=== PATIENT | female | born 1965 | race African-American/Black ===

== ENCOUNTER 2017-06-27 02:01 | Emergency (ER) | payer SELFPAY ==
[~2017-06-27] VITALS: Ht 165.1 cm; Wt 52.0 kg
[~2017-06-27 02:01] MED LIST: ADALAT CC30 MG OR; CLONIDINE0.1 MG PO; CLONIDINE0.2 MG OR; FIORICET PO; LORTAB 5 OR; LOSARTAN POT50 MG PO; NORVASC10 M1 PO; PERCOCET 5/325M1 TAB OR; PROCARDIA XL30 MG PO; PROMETHAZINE25 MG OR; ULTRAM50 MG OR
[2017-06-27 03:03] LABS: HEMOGLOBIN 15.3 g/dl (12.0-16.0); IMMATURE GRANULOCYTES 0.2 % (0.0-1.0); MEAN CELL VOLUME 85.2 fL CALC (80.0-100.0); MEAN CORPUSCULAR HGB 28.3 pG CALC (26.0-32.0); MEAN CORPUSCULAR HGB CONC 33.3 g/L CALC (32.0-36.0); RED BLOOD COUNT 5.4 mill/uL (4.20-5.60); RED CELL DISTRI WIDTH 13.7 % (11.5-15.5)
[2017-06-27 03:08] LABS: COCAINE NEGATIVE (NEGATIVE); TETRAHYDROCANNABIONOL NEGATIVE (NEGATIVE)
[2017-06-27 03:09] LABS: BARBITURATES NEGATIVE (NEGATIVE); METHADONE NEGATIVE (NEGATIVE); OXCYCODONE NEGATIVE (NEGATIVE); TRICYLIC ANTIDEPRESSANTS NEGATIVE (NEGATIVE)
[2017-06-27 03:13] LABS: ALBUMIN 4.8 g/dL (3.2-5.0); ALKALINE PHOSPHATASE 85 u/l (38-126); ANION GAP 20 (6-22 (CALC)); BILIRUBIN, TOTAL 0.4 mg/dL (0.0-1.4); BUN 14 mg/dL (7-17); BUN/CREATININE RATIO 19 (12-20 (CALC)); CALCIUM 10.2 mg/dL (8.4-10.2); CARBON DIOXIDE 23 mmol/l (22-30); CHLORIDE 105 mmol/l (95-108); CREATININE 0.8 mg/dL (0.5-1.0); ETHYL ALCOHOL 80 mg/dl (0-30); GFR > 60 ML/MIN (>=60 (CALC)); GFR FOR AFR.AMER. > 60 ML/MIN (>=60 (CALC)); GLUCOSE 131 mg/dL (65-105); POTASSIUM 3.8 mmol/l (3.5-5.1); SGOT/AST 27 u/l (14-36); SGPT/ALT 32 u/l (9-52); SODIUM 145 mmol/l (137-146); TOTAL PROTEIN 7.9 g/dL (6.3-8.2)
[2017-06-27 05:55] VITALS: BP 147/77
[2017-06-27] MEDS ORDERED: PERCOCET 5/325M1 TAB PO (05:56)
[2017-06-27] MEDS ORDERED: HYDROCHLOROT25 MG PO (05:56)
[2017-06-27] MEDS ORDERED: GENTAMICIN0.3 % OD (06:06)
== END 2017-06-27 06:20 | disposition home or self-care (01) | DRG 605 ==
LOC: ED 02:01
PROVIDERS: Emergency Medicine
PROC: 2W3KX1Z Immobilization of Left Finger using Splint (ICD-10-PCS; principal; 2017-06-27)
DX: S00.83XA Contusion of other part of head, initial encounter (principal); I10 Essential (primary) hypertension; M25.542 Pain in joints of left hand; H11.31 Conjunctival hemorrhage, right eye; M25.442 Effusion, left hand; Y04.0XXA Assault by unarmed brawl or fight, initial encounter; Y92.039 Unspecified place in apartment as the place of occurrence of the external cause; Z72.89 Other problems related to lifestyle

== ENCOUNTER 2018-03-04 16:55 | Observation (INO) | payer OTHER ==
[~2018-03-04] VITALS: Ht 162.6 cm; Wt 57.6 kg
[~2018-03-04 16:55] MED LIST changes: +GENTAMICIN0.3 % OD; +HYDROCHLOROT25 MG PO; +PERCOCET 5/325M1 TAB PO
[2018-03-04 17:25] LABS: HEMATOCRIT 44.4 % (37.0-47.0); HEMOGLOBIN 14.5 g/dl (12.0-16.0); IMMATURE GRANULOCYTES 0.3 % (0.0-1.0); MEAN CELL VOLUME 86.4 fL CALC (80.0-100.0); MEAN CORPUSCULAR HGB 28.2 pG CALC (26.0-32.0); MEAN CORPUSCULAR HGB CONC 32.7 g/L CALC (32.0-36.0); NEUT# 4.19 thou/uL (2.00-7.15); RED BLOOD COUNT 5.14 mill/uL (4.20-5.60); RED CELL DISTRI WIDTH 14.2 % (11.5-15.5)
[2018-03-04 17:49] LABS: ALBUMIN 4.6 g/dL (3.2-5.0); ALKALINE PHOSPHATASE 91 u/l (38-126); ANION GAP 13 (6-22 (CALC)); BILIRUBIN, TOTAL 0.4 mg/dL (0.0-1.4); BUN 16 mg/dL (7-17); BUN/CREATININE RATIO 26 (12-20 (CALC)); CARBON DIOXIDE 27 mmol/l (22-30); CHLORIDE 106 mmol/l (95-108); CREATININE 0.6 mg/dL (0.5-1.0); GFR > 60 ML/MIN (>=60 (CALC)); GFR FOR AFR.AMER. > 60 ML/MIN (>=60 (CALC)); POTASSIUM 3.9 mmol/l (3.5-5.1); SGOT/AST 24 u/l (14-36); SGPT/ALT 28 u/l (9-52); SODIUM 142 mmol/l (137-146); TOTAL PROTEIN 8.3 g/dL (6.3-8.2)
[2018-03-04 18:45] LABS: URINE BILIRUBIN - DIPSTICK NEGATIVE (NEGATIVE); URINE BLOOD DIPSTICK SMALL (NEGATIVE); URINE CLARITY CLEAR; URINE COLOR YELLOW; URINE GLUCOSE - DIPSTICK NEGATIVE (NEGATIVE); URINE KETONE NEGATIVE (NEGATIVE); URINE LEUK ESTERASE SMALL (NEGATIVE); URINE NITRITE - DIPSTICK NEGATIVE (Negative); URINE PH 6.5 (4.5-8.0); URINE PROTEIN - DIPSTICK TRACE mg/dL (NEG-TRACE); URINE UROBILINOGEN - DIPSTICK 0.2 E.U./dL (0.2)
[2018-03-04 18:54] LABS: URINE SQUAMOUS EPITHELIAL CELL FEW EPI/hpf (0-FEW)
[2018-03-04 19:15] VITALS: BP 150/81
[2018-03-04 20:58] VITALS: BP 157/81
[2018-03-04 23:43] VITALS: BP 138/73
[2018-03-05] VITALS (10 sets, daily range): BP systolic 121–207; BP diastolic 74–94
[2018-03-05 06:15] LABS: CHOLESTEROL HDL RATIO 4.2 (<4.4 (CALC))
[2018-03-06] VITALS (7 sets, daily range): BP systolic 131–188; BP diastolic 80–106
[2018-03-06 06:21] LABS: ANION GAP 10 (6-22 (CALC)); BUN 11 mg/dL (7-17); BUN/CREATININE RATIO 19 (12-20 (CALC)); CARBON DIOXIDE 28 mmol/l (22-30); CHLORIDE 106 mmol/l (95-108); CREATININE 0.6 mg/dL (0.5-1.0); GFR > 60 ML/MIN (>=60 (CALC)); GFR FOR AFR.AMER. > 60 ML/MIN (>=60 (CALC)); POTASSIUM 3.7 mmol/l (3.5-5.1); SODIUM 141 mmol/l (137-146)
[2018-03-07 00:35] VITALS: BP 145/78
[2018-03-07 04:33] VITALS: BP 142/85
[2018-03-07] MEDS ORDERED: catapres PO (08:23)
[2018-03-07] MEDS ORDERED: LISINOPRIL20 M1 PO (08:23)
[2018-03-07] MEDS ORDERED: CARDIZEM CD120 M1 PO (08:23)
[2018-03-07 08:28] VITALS: BP 191/93
[2018-03-07 09:42] VITALS: BP 160/89
[2018-03-07 12:35] VITALS: BP 127/79
== END 2018-03-07 14:20 | disposition home or self-care (01) ==
LOC: ED 16:55 → ED-I 18:04 → ED 18:27 → MS2 18:28
PROVIDERS: Emergency Medicine; Nurse Practitioner Family; ADMIT Internal Medicine; ATTEND Internal Medicine
DX: I16.0 Hypertensive urgency (principal); I10 Essential (primary) hypertension; F17.210 Nicotine dependence, cigarettes, uncomplicated; Z23 Encounter for immunization; Z91.14 Patient's other noncompliance with medication regimen; R07.2 Precordial pain
CPT/HCPCS: G0378

== ENCOUNTER 2023-03-24 19:27 | Inpatient (IN) | payer OTHER ==
[2023-03-24] VITALS (40 sets, daily range): BP systolic 87–238; BP diastolic 63–153
[~2023-03-24] VITALS: Ht 162.6 cm; Wt 48.0 kg
[~2023-03-24 19:27] MED LIST changes: +CARDIZEM CD120 M1 PO; +LISINOPRIL20 M1 PO; +catapres PO
[2023-03-24] MEDS ORDERED: AMLODIPINE BESYL5 MG PO (19:51)
[2023-03-24] MEDS ORDERED: HYDROCHLOROT12.5 M1 PO (19:51)
[2023-03-24] MEDS ORDERED: COZAAR50 MG PO (19:52)
[2023-03-24 20:06] LABS: BASO% 0.4 % (0-3); EOS% 1.4 % (0-8); HEMATOCRIT 47.1 % (37.0-47.0); HEMOGLOBIN 15.1 g/dl (12.0-16.0); IMMATURE GRANULOCYTES 0.2 % (0.0-5.0); LYMPH% 53.4 % (15-41); MEAN CELL VOLUME 83.7 fL CALC (80.0-100.0); MEAN CORPUSCULAR HGB 26.8 pG CALC (26.0-32.0); MEAN CORPUSCULAR HGB CONC 32.1 g/dL CAL (32.0-36.0); MONO% 5.4 % (2-13); NEUT# 5.05 thou/uL (2.00-7.15); NEUT% 39.2 % (42-76); RED BLOOD COUNT 5.63 mill/uL (4.20-5.60); RED CELL DISTRI WIDTH 13.7 % (11.5-15.5)
[2023-03-24 20:16] LABS: ALBUMIN 4.6 g/dL (3.2-5.0); ALKALINE PHOSPHATASE 91 u/l (38-126); ANION GAP 14 (6-22 (CALC)); BILIRUBIN, TOTAL 0.3 mg/dL (0.02-1.3); BUN 18 mg/dL (7-17); BUN/CREATININE RATIO 22 (12-20 (CALC)); CARBON DIOXIDE 29 mmol/l (22-30); CHLORIDE 100 mmol/l (95-108); CREATININE 0.8 mg/dL (0.5-1.0); GFR FOR AFR.AMER. > 60 ML/MIN (>=60 (CALC)); GFR OTHER RACES > 60 ML/MIN (>=60 (CALC)); POTASSIUM 3.6 mmol/l (3.5-5.1); SGOT/AST 31 u/l (14-36); SODIUM 139 mmol/l (137-146)
[2023-03-24 20:19] LABS: PROTHROMBIN TIME 9.8 SECONDS (9.0-12.5)
[2023-03-24 20:58] LABS: URINE BILIRUBIN - DIPSTICK NEGATIVE (NEGATIVE); URINE COLOR YELLOW; URINE GLUCOSE - DIPSTICK NEGATIVE (NEGATIVE); URINE KETONE Negative (NEGATIVE); URINE NITRITE - DIPSTICK NEGATIVE (Negative); URINE PROTEIN - DIPSTICK NEGATIVE (NEG-TRACE); URINE SPECIFIC GRAVITY 1.015; URINE UROBILINOGEN - DIPSTICK 0.2 E.U./dL (0.2)
[2023-03-24 20:59] LABS: URINE BLOOD DIPSTICK TRACE (NEGATIVE); URINE LEUK ESTERASE SMALL (NEGATIVE)
[2023-03-24 21:03] LABS: URINE RBC 0-2 RBC/hpf (0-5); URINE SQUAMOUS EPITHELIAL CELL FEW EPI/hpf (0-FEW)
[2023-03-25] VITALS (82 sets, daily range): BP systolic 122–243; BP diastolic 63–131
[2023-03-26] VITALS (46 sets, daily range): BP systolic 79–187; BP diastolic 50–109
[2023-03-27] VITALS (15 sets, daily range): BP systolic 117–169; BP diastolic 57–82
[2023-03-27] MEDS ORDERED: NORMODYNE/TRAN100 MG PO (13:43)
[2023-03-27] MEDS ORDERED: PLAVIX75 MG PO (13:54)
[2023-03-27] MEDS ORDERED: ENTERIC COATED325 MG PO (13:54)
[2023-03-27] MEDS ORDERED: ATORVASTATIN CA40 MG PO (13:54)
[2023-03-27] MEDS ORDERED: SURFAK240 MG/CAP PO (13:55)
== END 2023-03-27 14:35 | disposition home or self-care (01) | DRG 66 ==
LOC: ED 19:27 → ICU 22:15
PROVIDERS: Emergency Medicine; ADMIT Internal Medicine; ATTEND Internal Medicine
DX: I63.512 Cerebral infarction due to unspecified occlusion or stenosis of left middle cerebral artery (principal); I63.532 Cerebral infarction due to unspecified occlusion or stenosis of left posterior cerebral artery; G83.21 Monoplegia of upper limb affecting right dominant side; H53.8 Other visual disturbances; R20.0 Anesthesia of skin; R29.703 NIHSS score 3; I65.21 Occlusion and stenosis of right carotid artery; I10 Essential (primary) hypertension; I69.398 Other sequelae of cerebral infarction; G93.89 Other specified disorders of brain; F17.200 Nicotine dependence, unspecified, uncomplicated; M06.9 Rheumatoid arthritis, unspecified; T46.5X6A Underdosing of other antihypertensive drugs, initial encounter; Z91.128 Patient's intentional underdosing of medication regimen for other reason; G43.909 Migraine, unspecified, not intractable, without status migrainosus
CPT/HCPCS: Q9967

== ENCOUNTER 2024-02-16 00:36 | Emergency (ER) | payer OTHER ==
[~2024-02-16] VITALS: Ht 162.6 cm; Wt 60.0 kg
[~2024-02-16 00:36] MED LIST changes: +AMLODIPINE BESYL5 MG PO; +ATORVASTATIN CA40 MG PO; +COZAAR50 MG PO; +ENTERIC COATED325 MG PO; +HYDROCHLOROT12.5 M1 PO; +NORMODYNE/TRAN100 MG PO; +PLAVIX75 MG PO; +SURFAK240 MG/CAP PO
[2024-02-16 01:28] VITALS: BP 131/89
== END 2024-02-16 01:28 | disposition home or self-care (01) ==
LOC: ED 00:36
DX: T16.1XXA Foreign body in right ear, initial encounter (principal); W44.F4XA Insect entering into or through a natural orifice, initial encounter; I10 Essential (primary) hypertension; F17.200 Nicotine dependence, unspecified, uncomplicated

== ENCOUNTER 2024-04-22 09:11 | Inpatient (IN) | payer OTHER ==
[2024-04-22] VITALS (34 sets, daily range): BP systolic 164–213; BP diastolic 79–128
[~2024-04-22] VITALS: Ht 152.4 cm; Wt 61.0 kg
[2024-04-22] MEDS ORDERED: NORVASC PO (09:30)
[2024-04-22 09:44] LABS: BASO% 0.3 % (0-3); EOS% 1.7 % (0-8); HEMATOCRIT 43.5 % (37.0-47.0); IMMATURE GRANULOCYTES 0.2 % (0.0-5.0); LYMPH% 58.9 % (15-41); MEAN CELL VOLUME 84.6 fL CALC (80.0-100.0); MEAN CORPUSCULAR HGB 27.2 pG CALC (26.0-32.0); MEAN CORPUSCULAR HGB CONC 32.2 g/dL CAL (32.0-36.0); MONO% 5.8 % (2-13); NEUT# 3.92 thou/uL (2.00-7.15); NEUT% 33.1 % (42-76); RED BLOOD COUNT 5.14 mill/uL (4.20-5.60); RED CELL DISTRI WIDTH 13.2 % (11.5-15.5)
[2024-04-22 09:54] LABS: ALBUMIN 4.6 g/dL (3.2-5.0); ALKALINE PHOSPHATASE 115 u/l (38-126); ANION GAP 9 (6-22 (CALC)); BUN 13 mg/dL (7-17); BUN/CREATININE RATIO 17 (12-20 (CALC)); CALCULATED LDLCHOLESTEROL 112 mg/dL (62-129 (CALC)); CARBON DIOXIDE 27 mmol/l (22-30); CHLORIDE 108 mmol/l (95-108); CHOLESTEROL HDL RATIO 3.6 (<4.4 (CALC)); CREATININE 0.7 mg/dL (0.5-1.0); ESTIMATED GFR 101 ML/MIN (>=90 (CALC)); HDL CHOLESTEROL 51 mg/dL (39.0-59.0); POTASSIUM 3.6 mmol/l (3.5-5.1); SGOT/AST 38 u/l (14-36); SODIUM 140 mmol/l (137-146); TOTAL CHOLESTEROL 185 mg/dl (0-199); TOTAL PROTEIN 8.4 g/dL (6.3-8.2); TOTAL TRIGLYCERIDES 110 mg/dl (0-149); VLDL CHOLESTROL 22 mg/dl (2-49 (CALC))
[2024-04-22 09:55] LABS: BILIRUBIN, TOTAL 0.7 mg/dL (0.02-1.3)
[2024-04-22 09:56] LABS: INTERNATIONAL NORMALIZED RATIO 1.1 RATIO (0.7-1.3)
[2024-04-22 09:59] LABS: PROTHROMBIN TIME 10.1 SECONDS (9.0-12.5)
[2024-04-22 10:18] LABS: URINE BILIRUBIN - DIPSTICK Negative (NEGATIVE); URINE BLOOD DIPSTICK Trace-intact (NEGATIVE); URINE COLOR Yellow; URINE EPITHELIAL CELLS FEW EPI/hpf (0-FEW); URINE GLUCOSE - DIPSTICK 100 mg/dL (NEGATIVE); URINE KETONE Negative (NEGATIVE); URINE LEUK ESTERASE Small (NEGATIVE); URINE NITRITE - DIPSTICK Negative (Negative); URINE PROTEIN - DIPSTICK Negative (NEG-TRACE); URINE RBC 0-2 RBC/hpf (0-5); URINE UROBILINOGEN - DIPSTICK 0.2 E.U./dL (0.2)
[2024-04-22 10:19] LABS: URINE BACTERIA FEW hpf
[2024-04-22] MEDS ORDERED: DEXTROSE 250 ML IV PRN (13:40)
[2024-04-22] MEDS ORDERED: ENALAPRILAT 1.25 MG/ML 1ML IV PRN (13:40)
[2024-04-22] MEDS ORDERED: ACETAMINOPHEN 325 MG/TAB PO PRN (13:50)
[2024-04-22] MEDS ORDERED: MAGNESIUM HYDROXIDE 30 ML UDC PO PRN (13:50)
[2024-04-22] MEDS ORDERED: METOPROLOL TARTRATE 5 MG/5 ML VIAL IV ONE (14:00)
[2024-04-22] MEDS ORDERED: hydrALAZINE HCL 20 MG/ML VIAL(1 ML) IV ONE (14:20)
[2024-04-22] MEDS ORDERED: INSULIN LISPRO 100 UNITS/ML ML SC SCH (17:00)
[2024-04-22] MEDS ORDERED: ATORVASTATIN CALCIUM 40 MG/TAB PO SCH (21:00)
[2024-04-22] MEDS ORDERED: ENOXAPARIN SODIUM 40 MG/0.4 ML SYR SC SCH (21:00)
[2024-04-23] VITALS (28 sets, daily range): BP systolic 124–200; BP diastolic 61–120
[2024-04-23 05:44] LABS: BASO% 0.5 % (0-3); EOS% 2.5 % (0-8); HEMATOCRIT 42.5 % (37.0-47.0); HEMOGLOBIN 13.9 g/dl (12.0-16.0); IMMATURE GRANULOCYTES 0.1 % (0.0-5.0); LYMPH% 58.3 % (15-41); MEAN CELL VOLUME 84.8 fL CALC (80.0-100.0); MEAN CORPUSCULAR HGB 27.7 pG CALC (26.0-32.0); MEAN CORPUSCULAR HGB CONC 32.7 g/dL CAL (32.0-36.0); MONO% 7.1 % (2-13); NEUT# 3.05 thou/uL (2.00-7.15); NEUT% 31.5 % (42-76); RED BLOOD COUNT 5.01 mill/uL (4.20-5.60); RED CELL DISTRI WIDTH 13.2 % (11.5-15.5)
[2024-04-23 05:53] LABS: ALBUMIN 4.1 g/dL (3.2-5.0); BILIRUBIN, TOTAL 0.7 mg/dL (0.02-1.3); CREATININE 0.9 mg/dL (0.5-1.0); MAGNESIUM 1.8 mg/dL (1.6-2.3); TOTAL PROTEIN 7.5 g/dL (6.3-8.2)
[2024-04-23] MEDS ORDERED: ASPIRIN 81 MG/TAB PO SCH (09:00)
[2024-04-23] MEDS ORDERED: CLOPIDOGREL BISULFATE 75 MG/TAB TAB PO SCH (09:00)
[2024-04-23] MEDS ORDERED: BENZOCAINE-MENTHOL (MOUTH-THRO 1 LOZ LOZ PO PRN (09:30)
[2024-04-23] MEDS ORDERED: NICOTINE TRANSDERMAL 21 MG/PATCH TD SCH (09:45)
[2024-04-24] VITALS (25 sets, daily range): BP systolic 125–186; BP diastolic 73–106
[2024-04-24 06:04] LABS: BASO% 0.6 % (0-3); EOS% 2.1 % (0-8); HEMATOCRIT 41.2 % (37.0-47.0); HEMOGLOBIN 13.6 g/dl (12.0-16.0); IMMATURE GRANULOCYTES 0.1 % (0.0-5.0); LYMPH% 54.1 % (15-41); MEAN CELL VOLUME 84.4 fL CALC (80.0-100.0); MEAN CORPUSCULAR HGB 27.9 pG CALC (26.0-32.0); MONO% 7.8 % (2-13); NEUT# 3.48 thou/uL (2.00-7.15); NEUT% 35.3 % (42-76); RED BLOOD COUNT 4.88 mill/uL (4.20-5.60); RED CELL DISTRI WIDTH 13.4 % (11.5-15.5)
[2024-04-24 06:19] LABS: ALBUMIN 4.2 g/dL (3.2-5.0); BILIRUBIN, TOTAL 0.9 mg/dL (0.02-1.3); CREATININE 0.9 mg/dL (0.5-1.0); POTASSIUM 4.1 mmol/l (3.5-5.1); TOTAL PROTEIN 7.5 g/dL (6.3-8.2)
[2024-04-24] MEDS ORDERED: LOSARTAN Potassium 25 MG/TAB PO SCH (09:00)
[2024-04-24] MEDS ORDERED: amLODIPine BESYLATE 5 MG/TAB PO SCH (09:00)
[2024-04-25] VITALS (22 sets, daily range): BP systolic 125–178; BP diastolic 62–94
[2024-04-25 05:27] LABS: BASO% 0.7 % (0-3); EOS% 2.1 % (0-8); HEMATOCRIT 40.7 % (37.0-47.0); HEMOGLOBIN 13.2 g/dl (12.0-16.0); IMMATURE GRANULOCYTES 0.1 % (0.0-5.0); LYMPH% 50.6 % (15-41); MEAN CELL VOLUME 85.1 fL CALC (80.0-100.0); MEAN CORPUSCULAR HGB 27.6 pG CALC (26.0-32.0); MEAN CORPUSCULAR HGB CONC 32.4 g/dL CAL (32.0-36.0); MONO% 7.6 % (2-13); NEUT# 3.72 thou/uL (2.00-7.15); NEUT% 38.9 % (42-76); RED BLOOD COUNT 4.78 mill/uL (4.20-5.60); RED CELL DISTRI WIDTH 13.2 % (11.5-15.5)
[2024-04-25 05:33] LABS: ALBUMIN 4.1 g/dL (3.2-5.0); BILIRUBIN, TOTAL 0.9 mg/dL (0.02-1.3); CREATININE 0.8 mg/dL (0.5-1.0); POTASSIUM 3.9 mmol/l (3.5-5.1); TOTAL PROTEIN 7.3 g/dL (6.3-8.2)
[2024-04-25] MEDS ORDERED: metFORMIN HYDROCHLORIDE 500 MG/TAB PO SCH (07:30)
[2024-04-25] MEDS ORDERED: METOPROLOL TARTRATE 25 MG/TAB PO SCH (21:41)
[2024-04-25] MEDS ORDERED: hydrALAZINE HCL 20 MG/ML VIAL(1 ML) IV PRN (21:45)
[2024-04-26] VITALS (23 sets, daily range): BP systolic 88–203; BP diastolic 45–110
[2024-04-26 05:25] LABS: BASO% 0.5 % (0-3); EOS% 1.4 % (0-8); HEMATOCRIT 42.2 % (37.0-47.0); HEMOGLOBIN 13.7 g/dl (12.0-16.0); IMMATURE GRANULOCYTES 0.2 % (0.0-5.0); LYMPH% 46.4 % (15-41); MEAN CELL VOLUME 85.4 fL CALC (80.0-100.0); MEAN CORPUSCULAR HGB 27.7 pG CALC (26.0-32.0); MEAN CORPUSCULAR HGB CONC 32.5 g/dL CAL (32.0-36.0); MONO% 6.6 % (2-13); NEUT# 5.36 thou/uL (2.00-7.15); NEUT% 44.9 % (42-76); RED BLOOD COUNT 4.94 mill/uL (4.20-5.60); RED CELL DISTRI WIDTH 13.2 % (11.5-15.5)
[2024-04-26 05:34] LABS: ALBUMIN 4.1 g/dL (3.2-5.0); BILIRUBIN, TOTAL 0.7 mg/dL (0.02-1.3); MAGNESIUM 1.9 mg/dL (1.6-2.3); POTASSIUM 3.9 mmol/l (3.5-5.1); TOTAL PROTEIN 7.2 g/dL (6.3-8.2)
[2024-04-26] MEDS ORDERED: LOSARTAN Potassium 50 MG/TAB PO SCH (09:00)
[2024-04-26] MEDS ORDERED: ALPRAZolam 0.25 MG PO PRN (09:50)
[2024-04-27] VITALS (16 sets, daily range): BP systolic 120–172; BP diastolic 54–110
[2024-04-27 05:29] LABS: BASO% 0.4 % (0-3); EOS% 1.9 % (0-8); HEMATOCRIT 42.1 % (37.0-47.0); HEMOGLOBIN 13.4 g/dl (12.0-16.0); IMMATURE GRANULOCYTES 0.1 % (0.0-5.0); LYMPH% 48.1 % (15-41); MEAN CELL VOLUME 85.6 fL CALC (80.0-100.0); MEAN CORPUSCULAR HGB 27.2 pG CALC (26.0-32.0); MEAN CORPUSCULAR HGB CONC 31.8 g/dL CAL (32.0-36.0); NEUT# 4.68 thou/uL (2.00-7.15); NEUT% 43.5 % (42-76); RED BLOOD COUNT 4.92 mill/uL (4.20-5.60); RED CELL DISTRI WIDTH 13.2 % (11.5-15.5)
[2024-04-27 05:52] LABS: BILIRUBIN, TOTAL 0.6 mg/dL (0.02-1.3); CREATININE 0.9 mg/dL (0.5-1.0); MAGNESIUM 1.8 mg/dL (1.6-2.3); POTASSIUM 4.5 mmol/l (3.5-5.1); TOTAL PROTEIN 7.2 g/dL (6.3-8.2)
[2024-04-27] MEDS ORDERED: ATORVASTATIN CA40 MG PO (06:00)
[2024-04-27] MEDS ORDERED: PLAVIX75 MG PO (06:01)
[2024-04-27] MEDS ORDERED: ASPIRIN81 MG PO (06:02)
[2024-04-27] MEDS ORDERED: METFORMIN500 M2 PO (06:03)
[2024-04-27] MEDS ORDERED: XANAX0.25 MG PO (17:23)
== END 2024-04-27 16:30 | disposition home or self-care (01) | DRG 66 ==
LOC: ED 09:11 → ED-I 10:12 → ED 13:01 → ICU 13:02
PROVIDERS: Family Medicine; ADMIT Student in an Organized Health Care Education/Training Program; ATTEND Student in an Organized Health Care Education/Training Program
DX: I63.512 Cerebral infarction due to unspecified occlusion or stenosis of left middle cerebral artery (principal); R47.01 Aphasia; R29.810 Facial weakness; R29.706 NIHSS score 6; I65.21 Occlusion and stenosis of right carotid artery; I10 Essential (primary) hypertension; I69.398 Other sequelae of cerebral infarction; H53.40 Unspecified visual field defects; G93.89 Other specified disorders of brain; M06.9 Rheumatoid arthritis, unspecified; E11.9 Type 2 diabetes mellitus without complications; F17.210 Nicotine dependence, cigarettes, uncomplicated; Z79.82 Long term (current) use of aspirin
CPT/HCPCS: A9579; J1650; Q9967